=== PATIENT | male | born 1940 | race Caucasian/White ===

== ENCOUNTER → 2017-05-03 09:04 | Outpatient (CLI) | payer MEDICARE, OTHER, SELFPAY ==
[2017-05-03 11:45] LABS: Ferritin 2951 ng/mL (8-388)
[2017-05-04 08:21] LABS: Iron 242 ug/dL (38-169); UIBC 270 ug/dL (111-343)
[2017-05-04 12:16] LABS: Iron Saturation 47 % (15-55)
== END ==
PROVIDERS: PCP Internal Medicine Adolescent Medicine; Visit Provider Internal Medicine
DX: D64.9 Anemia, unspecified (principal); C83.07 Small cell B-cell lymphoma, spleen
CPT/HCPCS: 82728; 83550

== ENCOUNTER → 2017-05-17 08:42 | Outpatient (CLI) | payer MEDICARE, OTHER, SELFPAY ==
[2017-05-17 10:05] LABS: Alanine Aminotransferase 49 U/L (12-78); Albumin Level 3.5 gm/dL (3.4-5.0); Alkaline Phosphatase 137 U/L (46-116); Anion Gap 15.5 mEq/L (5-15); Aspartate Amino Transferase 38 U/L (15-37); Bilirubin,Total 0.7 mg/dL (0.2-1.0); Blood Urea Nitrogen 26 mg/dL (7-18); Calcium 8.6 mg/dL (8.5-10.1); Carbon Dioxide 22 mmol/L (21.0-32.0); Chloride 105 mmol/L (98-107); Creatinine,Serum 0.87 mg/dL (0.70-1.30); Estimated Glomerular Filt Rate 85 ml/min (>60); GFR (African American) 103 ML/MIN (>60); Globulin 3.5 gm/dl (1.3-3.2); Glucose 133 mg/dL (74-106); Potassium 3.5 mmoL/L (3.5-5.1); Sodium 139 mmol/L (136-145)
== END ==
PROVIDERS: PCP Internal Medicine Adolescent Medicine; Visit Provider Internal Medicine
DX: D64.9 Anemia, unspecified (principal); C83.07 Small cell B-cell lymphoma, spleen
CPT/HCPCS: 36415; 80053

== ENCOUNTER → 2017-05-18 14:06 | Outpatient (CLI) | payer MEDICARE, OTHER, SELFPAY ==
[2017-05-18 14:21] LABS: Basophils % 0.3 % (0.1-2.0); Eosinophils # 0.1 K/mm3 (0.0-0.4); Eosinophils % 1.6 % (0.1-12.0); Lymphocytes # 0.6 K/mm3 (0.7-4.5); Mean Corpuscular HGB Conc 32.4 g/dL (31.8-35.4); Mean Corpuscular Hemoglobin 37.9 pg (27.0-31.2); Mean Platelet Volume 10.2 fl (7.4-10.4); Monocytes # 0.4 K/mm3 (0.1-1.0); Monocytes % 12.6 % (1.7-9.3); Neutrophils % 66.5 % (37.0-80.0); Platelet Count 81 K/mm3 (142-424); Red Cell Distribution Width 23.9 % (11.5-17.5)
[2017-05-18 14:31] LABS: Hematocrit 19.9 % (42.0-52.0); Hemoglobin 6.4 g/dL (14.1-18.0)
== END ==
PROVIDERS: PCP Internal Medicine Adolescent Medicine; Visit Provider Internal Medicine
DX: D64.9 Anemia, unspecified (principal); C83.07 Small cell B-cell lymphoma, spleen
CPT/HCPCS: 36415; 85025

== ENCOUNTER 2017-05-19 08:00 | Outpatient (CLI) | payer MEDICARE, OTHER, SELFPAY ==
[2017-05-19] VITALS (18 sets, daily range): BP systolic 74–110; BP diastolic 31–66; PULSE 63–80; RESP 16–18; TEMP 36.2–36.7; BMI 12.9
--- NOTE | 2017-05-19 11:03 | PC.NURSE ---
BLOOD DRAWN WITH IV STICK TO GET TYPE AND CROSSMATCH FOR 2 UNITS PRBC'S AT THIS TIME. TERRI FROM LAB PRESENT.
--- NOTE | 2017-05-19 11:18 | PC.NURSE ---
1048 - TRANSFUSION RATE INCREASED FROM 100 ML/HR TO 150 ML/HR AT THIS TIME
--- NOTE | 2017-05-19 11:44 | PC.NURSE ---
1118 - RATE INCREASED TO 200 ML/HR AT THIS TIME
--- NOTE | 2017-05-19 13:25 | PC.NURSE ---
1308 - INCREASED RATE FROM 100 ML/HR TO 150 ML/HR AT THIS TIME
--- NOTE | 2017-05-19 15:12 | PC.NURSE ---
1338 - INCREASED RATE TO 200 ML/HR AT THIS TIME
[2017-05-19 15:48] LABS: Hematocrit 29.1 % (42.0-52.0); Hemoglobin 9.7 g/dL (14.1-18.0)
== END 2017-05-19 15:40 | disposition home or self-care (01) ==
LOC: INF 08:50
PROVIDERS: Family Provider Internal Medicine Adolescent Medicine; PCP Internal Medicine Adolescent Medicine; Visit Provider Internal Medicine
DX: C85.90 Non-Hodgkin lymphoma, unspecified, unspecified site (principal)
CPT/HCPCS: 36430; 85014; 85018; 86850; P9016

== ENCOUNTER → 2017-06-14 08:41 | Outpatient (CLI) | payer MEDICARE, OTHER, SELFPAY ==
[2017-06-14 09:14] LABS: Basophils % 0.4 % (0.1-2.0); Eosinophils # 0.1 K/mm3 (0.0-0.4); Eosinophils % 1.1 % (0.1-12.0); Hematocrit 24.1 % (42.0-52.0); Lymphocytes # 0.5 K/mm3 (0.7-4.5); Lymphocytes % 10.6 K/mm3 (10-50); Mean Corpuscular HGB Conc 32.2 g/dL (31.8-35.4); Mean Corpuscular Hemoglobin 34.8 pg (27.0-31.2); Mean Corpuscular Volume 108.1 fl (80-94); Mean Platelet Volume 10.4 fl (7.4-10.4); Monocytes # 0.4 K/mm3 (0.1-1.0); Monocytes % 9.7 % (1.7-9.3); Neutrophils # 3.6 K/mm3 (1.8-7.8); Neutrophils % 78.1 % (37.0-80.0); Platelet Count 77 K/mm3 (142-424); Red Blood Count 2.23 M/mm3 (4.60-6.20); Red Cell Distribution Width 24.1 % (11.5-17.5); White Blood Count 4.6 K/mm3 (4.8-10.8)
[2017-06-14 09:30] LABS: Hemoglobin 7.8 g/dL (14.1-18.0)
[2017-06-14 09:34] LABS: Alanine Aminotransferase 28 U/L (12-78); Albumin Level 3.2 gm/dL (3.4-5.0); Albumin/Globulin Ratio 0.8 (1.1-1.8); Alkaline Phosphatase 162 U/L (46-116); Anion Gap 14.2 mEq/L (5-15); Aspartate Amino Transferase 21 U/L (15-37); Bilirubin,Total 0.8 mg/dL (0.2-1.0); Blood Urea Nitrogen 20 mg/dL (7-18); Calcium 8.7 mg/dL (8.5-10.1); Carbon Dioxide 24 mmol/L (21.0-32.0); Chloride 103 mmol/L (98-107); Creatinine,Serum 0.82 mg/dL (0.70-1.30); Estimated Glomerular Filt Rate 91 ml/min (>60); GFR (African American) 110 ML/MIN (>60); Globulin 4.1 gm/dl (1.3-3.2); Glucose 122 mg/dL (74-106); Potassium 3.2 mmoL/L (3.5-5.1); Sodium 138 mmol/L (136-145); Total Protein,Serum 7.3 gm/dL (6.4-8.2)
--- NOTE | 2017-06-15 14:53 | SW/DCPLANNER ---
Follow up call on 05/04/17 TIMOTHY: Spoke with patients who has stated that patient was doing okay today. Engaged in conversation with about being scared of dying but she has stated that she has had several conversations with patient. Patient and stated that they have everything they need at this time and no further resources are necessary. Date of visit: 05/04/17
== END ==
PROVIDERS: Visit Provider Internal Medicine
DX: C83.07 Small cell B-cell lymphoma, spleen (principal); E83.10 Disorder of iron metabolism, unspecified
CPT/HCPCS: 36415; 80053; 85025

== ENCOUNTER 2017-06-20 08:14 | Outpatient (CLI) | payer MEDICARE, OTHER, SELFPAY ==
[2017-06-20] VITALS (21 sets, daily range): BP systolic 80–107; BP diastolic 38–61; PULSE 53–77; RESP 18–20; TEMP 36.2–36.4; O2SAT 96–97; BMI 12.7
[2017-06-20 14:59] LABS: Hematocrit 28.4 % (42.0-52.0); Hemoglobin 9.2 g/dL (14.1-18.0)
== END 2017-06-20 14:30 | disposition home or self-care (01) ==
LOC: INF 08:14
PROVIDERS: Family Provider Internal Medicine Adolescent Medicine; PCP Internal Medicine Adolescent Medicine; Visit Provider Internal Medicine
DX: D64.9 Anemia, unspecified (principal)
CPT/HCPCS: 36430; 85014; 85018; 86850; P9016

== ENCOUNTER → 2017-07-12 08:52 | Outpatient (CLI) | payer MEDICARE, OTHER, SELFPAY ==
[2017-07-12 09:09] LABS: Basophils % 0.4 % (0.1-2.0); Eosinophils % 1.2 % (0.1-12.0); Hematocrit 26.4 % (42.0-52.0); Hemoglobin 8.7 g/dL (14.1-18.0); Lymphocytes # 0.4 K/mm3 (0.7-4.5); Lymphocytes % 11.8 K/mm3 (10-50); Mean Corpuscular HGB Conc 33.1 g/dL (31.8-35.4); Mean Corpuscular Hemoglobin 35.9 pg (27.0-31.2); Mean Corpuscular Volume 108.3 fl (80-94); Mean Platelet Volume 10.4 fl (7.4-10.4); Monocytes # 0.4 K/mm3 (0.1-1.0); Monocytes % 11.4 % (1.7-9.3); Neutrophils # 2.5 K/mm3 (1.8-7.8); Neutrophils % 75.3 % (37.0-80.0); Platelet Count 70 K/mm3 (142-424); Red Blood Count 2.44 M/mm3 (4.60-6.20); Red Cell Distribution Width 22.7 % (11.5-17.5); White Blood Count 3.3 K/mm3 (4.8-10.8)
[2017-07-12 11:21] LABS: Alanine Aminotransferase 44 U/L (12-78); Albumin Level 3.4 gm/dL (3.4-5.0); Alkaline Phosphatase 136 U/L (46-116); Aspartate Amino Transferase 35 U/L (15-37); Bilirubin,Total 0.9 mg/dL (0.2-1.0); Blood Urea Nitrogen 18 mg/dL (7-18); Calcium 8.6 mg/dL (8.5-10.1); Carbon Dioxide 24 mmol/L (21.0-32.0); Chloride 104 mmol/L (98-107); Creatinine,Serum 0.72 mg/dL (0.70-1.30); Estimated Glomerular Filt Rate 106 ml/min (>60); GFR (African American) 128 ML/MIN (>60); Globulin 3.4 gm/dl (1.3-3.2); Glucose 128 mg/dL (74-106); Sodium 139 mmol/L (136-145); Total Protein,Serum 6.8 gm/dL (6.4-8.2)
== END ==
PROVIDERS: Visit Provider Internal Medicine
DX: C83.07 Small cell B-cell lymphoma, spleen (principal); E83.118 Other hemochromatosis
CPT/HCPCS: 36415; 80053; 85025

== ENCOUNTER → 2017-08-09 09:22 | Outpatient (CLI) | payer MEDICARE, OTHER, SELFPAY ==
[2017-08-09 12:31] LABS: Alanine Aminotransferase 39 U/L (12-78); Albumin Level 2.9 gm/dL (3.4-5.0); Albumin/Globulin Ratio 0.9 (1.1-1.8); Alkaline Phosphatase 119 U/L (46-116); Aspartate Amino Transferase 32 U/L (15-37); Bilirubin,Total 0.9 mg/dL (0.2-1.0); Blood Urea Nitrogen 15 mg/dL (7-18); Calcium 8.6 mg/dL (8.5-10.1); Carbon Dioxide 24 mmol/L (21.0-32.0); Chloride 104 mmol/L (98-107); Creatinine,Serum 0.67 mg/dL (0.70-1.30); Estimated Glomerular Filt Rate 115 ml/min (>60); GFR (African American) 139 ML/MIN (>60); Globulin 3.2 gm/dl (1.3-3.2); Glucose 115 mg/dL (74-106); Sodium 139 mmol/L (136-145); Total Protein,Serum 6.1 gm/dL (6.4-8.2)
[2017-08-09 14:02] LABS: Ferritin 2682 ng/mL (8-388)
[2017-08-09 14:46] LABS: Basophils % 0.2 % (0.1-2.0); Eosinophils % 1.9 % (0.1-12.0); Lymphocytes # 0.3 K/mm3 (0.7-4.5); Lymphocytes % 14.6 K/mm3 (10-50); Mean Corpuscular HGB Conc 31.9 g/dL (31.8-35.4); Mean Corpuscular Hemoglobin 38.3 pg (27.0-31.2); Mean Corpuscular Volume 119.9 fl (80-94); Mean Platelet Volume 11.7 fl (7.4-10.4); Monocytes # 0.2 K/mm3 (0.1-1.0); Monocytes % 11.8 % (1.7-9.3); Neutrophils # 1.4 K/mm3 (1.8-7.8); Neutrophils % 71.5 % (37.0-80.0); Platelet Count 61 K/mm3 (142-424); Red Blood Count 1.35 M/mm3 (4.60-6.20); Red Cell Distribution Width 23.2 % (11.5-17.5)
[2017-08-09 14:50] LABS: Hematocrit 16.2 % (42.0-52.0); Hemoglobin 5.2 g/dL (14.1-18.0)
[2017-08-10 08:28] LABS: Iron 147 ug/dL (38-169); UIBC 19 ug/dL (111-343)
[2017-08-11 12:54] LABS: Iron Saturation 89 % (15-55)
== END ==
PROVIDERS: Visit Provider Internal Medicine
DX: C83.07 Small cell B-cell lymphoma, spleen (principal); D64.9 Anemia, unspecified; E83.119 Hemochromatosis, unspecified
CPT/HCPCS: 36415; 80053; 82728; 83550; 85025; 86850

== ENCOUNTER 2017-08-10 08:17 | Outpatient (CLI) | payer MEDICARE, OTHER, SELFPAY ==
[2017-08-10] VITALS (26 sets, daily range): BP systolic 71–105; BP diastolic 34–53; PULSE 66–85; RESP 16–18; TEMP 36.1–36.7; O2SAT 100; BMI 12.7
--- NOTE | 2017-08-10 08:47 | PC.NURSE ---
0845 - INFUSION RATE AT 100 ML/HR AT THIS TIME.
--- NOTE | 2017-08-10 09:30 | PC.NURSE ---
0915 - INCREASED RATE TO 150 ML/HR AT THIS TIME.
--- NOTE | 2017-08-10 10:05 | PC.NURSE ---
0945 - INCREASED RATE TO 200 ML/HR AT THIS TIME.
--- NOTE | 2017-08-10 10:49 | PC.NURSE ---
1015 - INFUSION RATE INCREASED TO 250 ML/HR AT THIS TIME.
--- NOTE | 2017-08-10 11:18 | PC.NURSE ---
1115 - INFUSION RATE AT 100 ML/HR.
--- NOTE | 2017-08-10 12:30 | PC.NURSE ---
1145 - INCREASED RATE TO 150 ML/HR AT THIS TIME.
--- NOTE | 2017-08-10 12:33 | PC.NURSE ---
1215 - INCREASED RATE TO 200 ML/HR AT THIS TIME.
--- NOTE | 2017-08-10 13:04 | PC.NURSE ---
1245 - RATE WAS INCREASED TO 250 ML/HR AT THIS TIME.
--- NOTE | 2017-08-10 13:26 | PC.NURSE ---
1322 - INFUSION RATE AT 100 ML/HR.
--- NOTE | 2017-08-10 13:58 | PC.NURSE ---
1352 - INCREASED RATE TO 150 ML/HR AT THIS TIME.
--- NOTE | 2017-08-10 15:16 | PC.NURSE ---
1422 - INCREASED RATE TO 200 ML/HR AT THIS TIME.
--- NOTE | 2017-08-10 15:17 | PC.NURSE ---
1452 - RATE INCREASED TO 250 ML/HR AT THIS TIME.
[2017-08-10 16:29] LABS: Hemoglobin 10.9 g/dL (14.1-18.0)
--- NOTE | 2017-08-10 16:29 | PC.NURSE ---
1610 - BLOOD DRAWN FROM IV AT THIS TIME TO CHECK 1 HR POST H/H.
== END 2017-08-10 16:20 | disposition home or self-care (01) ==
LOC: INF 08:17
PROVIDERS: Family Provider Internal Medicine Adolescent Medicine; PCP Internal Medicine Adolescent Medicine; Visit Provider Internal Medicine
DX: D64.9 Anemia, unspecified (principal)
CPT/HCPCS: 36430; 85014; 85018; P9016

== ENCOUNTER → 2017-09-13 09:10 | Outpatient (CLI) | payer MEDICARE, OTHER, SELFPAY ==
[2017-09-13 10:00] LABS: Basophils % 0.3 % (0.1-2.0); Eosinophils # 0.1 K/mm3 (0.0-0.4); Eosinophils % 1.6 % (0.1-12.0); Lymphocytes # 0.3 K/mm3 (0.7-4.5); Lymphocytes % 9.6 K/mm3 (10-50); Mean Corpuscular HGB Conc 30.9 g/dL (31.8-35.4); Mean Corpuscular Hemoglobin 35.2 pg (27.0-31.2); Mean Corpuscular Volume 114.1 fl (80-94); Mean Platelet Volume 11.2 fl (7.4-10.4); Monocytes # 0.4 K/mm3 (0.1-1.0); Monocytes % 10.2 % (1.7-9.3); Neutrophils # 2.8 K/mm3 (1.8-7.8); Neutrophils % 78.4 % (37.0-80.0); Red Blood Count 1.44 M/mm3 (4.60-6.20); Red Cell Distribution Width 24.1 % (11.5-17.5); White Blood Count 3.5 K/mm3 (4.8-10.8)
[2017-09-13 10:37] LABS: Hematocrit 16.4 % (42.0-52.0); Platelet Count 44 K/mm3 (142-424)
[2017-09-13 11:34] LABS: Hemoglobin 5.1 g/dL (14.1-18.0)
== END ==
PROVIDERS: Visit Provider Internal Medicine
DX: C83.07 Small cell B-cell lymphoma, spleen (principal)
CPT/HCPCS: 36415; 85025; 86850

== ENCOUNTER 2017-09-14 08:00 | Outpatient (CLI) | payer MEDICARE, OTHER, SELFPAY ==
[2017-09-14] VITALS (27 sets, daily range): BP systolic 84–106; BP diastolic 34–57; PULSE 66–96; RESP 16–18; TEMP 35.8–36.3; O2SAT 98; BMI 12.7
--- NOTE | 2017-09-14 08:51 | PC.NURSE ---
0850 - BLOOD TRANSFUSION STARTED AT THIS TIME AT 100 ML/HR.
--- NOTE | 2017-09-14 10:15 | PC.NURSE ---
RATE INCREASED TO 150 ML/HR AT THIS TIME.
--- NOTE | 2017-09-14 10:17 | PC.NURSE ---
RATE INCREASED TO 200 ML/HR AT THIS TIME.
--- NOTE | 2017-09-14 10:51 | PC.NURSE ---
INFUSION RATE WAS INCREASED TO 250 ML/HR AT 1020.
--- NOTE | 2017-09-14 11:08 | PC.NURSE ---
1105 - BLOOD STARTED TRANSFUSING AT 100 ML/HR AT THIS TIME.
--- NOTE | 2017-09-14 11:38 | PC.NURSE ---
INCREASED RATE TO 150 ML/HR AT THIS TIME.
--- NOTE | 2017-09-14 12:33 | PC.NURSE ---
INCREASED RATE TO 200 ML/HR AT THIS TIME.
--- NOTE | 2017-09-14 13:36 | PC.NURSE ---
BLOOD STARTED TRANSFUSING AT THIS TIME AT 100 ML/HR.
--- NOTE | 2017-09-14 14:07 | PC.NURSE ---
INCREASED RATE TO 150 ML/HR AT THIS TIME.
--- NOTE | 2017-09-14 14:42 | PC.NURSE ---
INCREASED RATE TO 200 ML/HR AT THIS TIME.
--- NOTE | 2017-09-14 16:00 | PC.NURSE ---
RATE INCREASED TO 250 ML/HR AT 1505.
[2017-09-14 16:32] LABS: Hematocrit 31.8 % (42.0-52.0); Hemoglobin 10.5 g/dL (14.1-18.0)
--- NOTE | 2017-09-14 16:34 | PC.NURSE ---
BLOOD DRAWN FROM IV AT THIS TIME FOR 1 HR POST H/H THEN IV REMOVED.
== END 2017-09-14 16:30 | disposition home or self-care (01) ==
LOC: INF 08:11
PROVIDERS: Family Provider Internal Medicine Adolescent Medicine; PCP Internal Medicine Adolescent Medicine; Visit Provider Internal Medicine
DX: D64.9 Anemia, unspecified (principal)
CPT/HCPCS: 36430; 85014; 85018; P9016

== ENCOUNTER → 2017-09-27 09:26 | Outpatient (CLI) | payer MEDICARE, OTHER, SELFPAY ==
[2017-09-27 10:28] LABS: Eosinophils % 1.7 % (0.1-12.0); Hematocrit 25.5 % (42.0-52.0); Hemoglobin 8.1 g/dL (14.1-18.0); Lymphocytes # 0.3 K/mm3 (0.7-4.5); Lymphocytes % 13.7 K/mm3 (10-50); Mean Corpuscular HGB Conc 31.6 g/dL (31.8-35.4); Mean Corpuscular Hemoglobin 31.9 pg (27.0-31.2); Mean Corpuscular Volume 100.8 fl (80-94); Mean Platelet Volume 11.3 fl (7.4-10.4); Monocytes # 0.3 K/mm3 (0.1-1.0); Monocytes % 12.6 % (1.7-9.3); Neutrophils # 1.5 K/mm3 (1.8-7.8); Red Blood Count 2.53 M/mm3 (4.60-6.20); Red Cell Distribution Width 23.8 % (11.5-17.5); White Blood Count 2.1 K/mm3 (4.8-10.8)
[2017-09-27 10:30] LABS: Platelet Count 49 K/mm3 (142-424)
== END ==
PROVIDERS: Visit Provider Internal Medicine
DX: C83.07 Small cell B-cell lymphoma, spleen (principal)
CPT/HCPCS: 36415; 85025

== ENCOUNTER → 2017-10-04 14:45 | Outpatient (CLI) | payer MEDICARE, OTHER, SELFPAY ==
[2017-10-05 08:39] LABS: Hematocrit 20.4 % (42.0-52.0); Hemoglobin 6.3 g/dL (14.1-18.0)
== END ==
PROVIDERS: Visit Provider Internal Medicine
DX: D64.9 Anemia, unspecified (principal)
CPT/HCPCS: 36415; 85014; 85018; 86850

== ENCOUNTER 2017-10-05 08:21 | Outpatient (CLI) | payer MEDICARE, OTHER, SELFPAY ==
[2017-10-05] VITALS (18 sets, daily range): BP systolic 62–109; BP diastolic 35–53; PULSE 61–107; RESP 16–18; TEMP 35.9–36.3; BMI 12.7
--- NOTE | 2017-10-05 09:00 | PC.NURSE ---
0857 - STARTED BLOOD TRANSFUSION AT 100 ML/HR AT THIS TIE.
--- NOTE | 2017-10-05 11:00 | PC.NURSE ---
0927 - INCREASED RATE TO 150 ML/HR AT THIS TIME.
--- NOTE | 2017-10-05 11:03 | PC.NURSE ---
0957 - INCREASED RATE TO 200 ML/HR AT THIS TIME.
--- NOTE | 2017-10-05 11:04 | PC.NURSE ---
1027 - INCREASED RATE TO 250 ML/HR AT THIS TIME.
--- NOTE | 2017-10-05 11:18 | PC.NURSE ---
1115 - BLOOD TRANSFUSION STARTED AT 100 ML/HR AT THIS TIME.
--- NOTE | 2017-10-05 12:39 | PC.NURSE ---
1130 - INCREASED RATE TO 150 ML/HR AT THIS TIME.
--- NOTE | 2017-10-05 12:43 | PC.NURSE ---
1215 - INCREASED RATE TO 200 ML/HR AT THIS TIME.
--- NOTE | 2017-10-05 14:03 | PC.NURSE ---
1245 - RATE INCREASED TO 250 ML/HR AT THIS TIME.
[2017-10-05 14:13] LABS: Hematocrit 29.7 % (42.0-52.0)
[2017-10-05 14:28] LABS: Hemoglobin 9.5 g/dL (14.1-18.0)
== END 2017-10-05 14:10 | disposition home or self-care (01) ==
LOC: INF 08:21
PROVIDERS: Family Provider Internal Medicine Adolescent Medicine; PCP Internal Medicine Adolescent Medicine; Visit Provider Internal Medicine
DX: D64.9 Anemia, unspecified (principal)
CPT/HCPCS: 36430; 85014; 85018; P9016

== ENCOUNTER → 2017-10-16 10:01 | Outpatient (CLI) | payer MEDICARE, OTHER, SELFPAY ==
[2017-10-16 10:52] LABS: Basophils % 0.5 % (0.1-2.0); Eosinophils # 0.1 K/mm3 (0.0-0.4); Eosinophils % 1.6 % (0.1-12.0); Hematocrit 24.9 % (42.0-52.0); Lymphocytes # 0.3 K/mm3 (0.7-4.5); Lymphocytes % 10.7 K/mm3 (10-50); Mean Corpuscular HGB Conc 31.6 g/dL (31.8-35.4); Mean Corpuscular Hemoglobin 32.3 pg (27.0-31.2); Mean Corpuscular Volume 102.2 fl (80-94); Mean Platelet Volume 11.6 fl (7.4-10.4); Monocytes # 0.3 K/mm3 (0.1-1.0); Monocytes % 10.6 % (1.7-9.3); Neutrophils # 2.3 K/mm3 (1.8-7.8); Neutrophils % 76.5 % (37.0-80.0); Red Blood Count 2.43 M/mm3 (4.60-6.20); Red Cell Distribution Width 24.3 % (11.5-17.5)
[2017-10-16 10:59] LABS: Hemoglobin 7.9 g/dL (14.1-18.0); Platelet Count 31 K/mm3 (142-424)
[2017-10-16 12:22] LABS: Alanine Aminotransferase 35 U/L (12-78); Albumin Level 2.6 gm/dL (3.4-5.0); Albumin/Globulin Ratio 0.9 (1.1-1.8); Alkaline Phosphatase 101 U/L (46-116); Anion Gap 11.4 mEq/L (5-15); Aspartate Amino Transferase 27 U/L (15-37); Bilirubin,Total 1.2 mg/dL (0.2-1.0); Blood Urea Nitrogen 24 mg/dL (7-18); Calcium 7.9 mg/dL (8.5-10.1); Carbon Dioxide 27 mmol/L (21.0-32.0); Chloride 104 mmol/L (98-107); Creatinine,Serum 0.79 mg/dL (0.70-1.30); Estimated Glomerular Filt Rate 95 ml/min (>60); GFR (African American) 115 ML/MIN (>60); Glucose 201 mg/dL (74-106); Potassium 3.4 mmoL/L (3.5-5.1); Sodium 139 mmol/L (136-145); Total Protein,Serum 5.6 gm/dL (6.4-8.2)
== END ==
PROVIDERS: Visit Provider Internal Medicine
DX: C83.07 Small cell B-cell lymphoma, spleen (principal); D64.9 Anemia, unspecified
CPT/HCPCS: 36415; 80053; 85025

== ENCOUNTER → 2017-10-23 14:23 | Outpatient (CLI) | payer MEDICARE, OTHER, SELFPAY | PROVIDERS: Visit Provider Internal Medicine | DX: C83.07 Small cell B-cell lymphoma, spleen (principal); K62.5 Hemorrhage of anus and rectum; Z92.3 Personal history of irradiation | CPT/HCPCS: 36415; 86850 ==

== ENCOUNTER 2017-10-24 08:16 | Outpatient (CLI) | payer MEDICARE, OTHER, SELFPAY ==
[2017-10-24] VITALS (19 sets, daily range): BP systolic 69–112; BP diastolic 30–65; PULSE 62–95; RESP 20; TEMP 36.1–36.3; O2SAT 95–96; BMI 12.3
[2017-10-24 14:46] LABS: Hematocrit 28.5 % (42.0-52.0); Hemoglobin 9.1 g/dL (14.1-18.0)
== END 2017-10-24 14:54 | disposition home or self-care (01) ==
LOC: INF 08:16
PROVIDERS: Family Provider Internal Medicine Adolescent Medicine; PCP Internal Medicine Adolescent Medicine; Visit Provider Internal Medicine
DX: C83.07 Small cell B-cell lymphoma, spleen (principal); K62.5 Hemorrhage of anus and rectum; Z92.3 Personal history of irradiation
CPT/HCPCS: 36430; 85014; 85018; P9016

== ENCOUNTER → 2017-10-31 08:44 | Outpatient (CLI) | payer MEDICARE, OTHER, SELFPAY ==
--- NOTE | 2017-10-31 | XR_ITS ---
XR ribs BI min 4V w CXR1V COMPARISON: CT scan the chest 12/22/2016 HISTORY: Patient with known lymphoma possibly abnormal bone scan TECHNIQUE: PA chest and bilateral RIBS FINDINGS: Emphysematous changes are noted with hyperexpansion of lung roberts and depression of the hemidiaphragms. There is blunting of the right costo phrenic angle. There is generalized osteopenia the thoracic spine. This is stable mild old compression of T11 and mild compression of L1 as well. All the ribs appear to be intact bilaterally with no definite lytic or blastic lesions seen. There are no definite lytic or blastic lesions seen within the thoracic or lumbar spine. 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
--- NOTE | 2017-10-31 08:47 | NM_ITS ---
NM bone scan whole body COMPARISON: None HISTORY: Known lymphoma, rectal bleeding TECHNIQUE: 25.6 mCi technique 9M MDP was injected. Focal body anterior posterior scans were obtained along with cone-down lateral views of the head and neck FINDINGS: The bony calvarium and cervical spine appear normal. There is mildly diffuse increased activity within the cervical spine probably reflecting multilevel degenerative change. The shoulders and arms appear normal. There is a faint area of increased activity in the lower thoracic spine which appears to involve the T10 vertebral body. Patient has known mild compression fractures of T11 and L1 and these vertebral bodies show normal activity. The remainder of lumbar spine shows mild diffuse increased activity consistent with degenerative change. There is bilateral symmetrical activity in the [place] of the catheter ribs anteriorly probably reflecting arthritic change. The bony pelvis hips and femurs and lower legs appear normal. There are slightly increased activity in both knees which is bilateral symmetrical likely reflects mild degenerative change. IMPRESSION: Curious area of increased activity corresponding to the T10 vertebral body which shows no definite compression on the rib films. In view of the patient's history of osseous CT scan thoracic spine should be obtained to rule out the possibility of an early metastatic lesion involving T10.
== END ==
PROVIDERS: Family Provider Internal Medicine Adolescent Medicine; PCP Internal Medicine Adolescent Medicine; Visit Provider Internal Medicine
DX: C83.07 Small cell B-cell lymphoma, spleen (principal); K62.5 Hemorrhage of anus and rectum; Z92.3 Personal history of irradiation
CPT/HCPCS: 71111; 78306; A9503

== ENCOUNTER → 2017-11-08 12:52 | Outpatient (CLI) | payer MEDICARE, OTHER, SELFPAY ==
[2017-11-08 13:27] LABS: Basophils % 0.3 % (0.1-2.0); Eosinophils # 0.1 K/mm3 (0.0-0.4); Eosinophils % 0.5 % (0.1-12.0); Hematocrit 28.9 % (42.0-52.0); Hemoglobin 9.2 g/dL (14.1-18.0); Lymphocytes # 0.3 K/mm3 (0.7-4.5); Lymphocytes % 2.7 K/mm3 (10-50); Mean Corpuscular HGB Conc 31.8 g/dL (31.8-35.4); Mean Corpuscular Hemoglobin 34.4 pg (27.0-31.2); Mean Corpuscular Volume 108.2 fl (80-94); Mean Platelet Volume 11.4 fl (7.4-10.4); Monocytes # 0.6 K/mm3 (0.1-1.0); Neutrophils # 9.5 K/mm3 (1.8-7.8); Neutrophils % 90.5 % (37.0-80.0); Red Blood Count 2.67 M/mm3 (4.60-6.20); White Blood Count 10.5 K/mm3 (4.8-10.8)
[2017-11-08 13:48] LABS: Alanine Aminotransferase 59 U/L (12-78); Albumin Level 2.5 gm/dL (3.4-5.0); Alkaline Phosphatase 143 U/L (46-116); Anion Gap 13.2 mEq/L (5-15); Aspartate Amino Transferase 18 U/L (15-37); Bilirubin,Total 1.2 mg/dL (0.2-1.0); Blood Urea Nitrogen 24 mg/dL (7-18); Calcium 7.9 mg/dL (8.5-10.1); Carbon Dioxide 27 mmol/L (21.0-32.0); Chloride 106 mmol/L (98-107); Creatinine,Serum 0.67 mg/dL (0.70-1.30); Estimated Glomerular Filt Rate 115 ml/min (>60); GFR (African American) 139 ML/MIN (>60); Globulin 2.5 gm/dl (1.3-3.2); Glucose 208 mg/dL (74-106); Potassium 3.2 mmoL/L (3.5-5.1); Sodium 143 mmol/L (136-145)
[2017-11-08 14:57] LABS: Red Cell Distribution Width 26.5 % (11.5-17.5)
[2017-11-08 14:59] LABS: Platelet Count 40 K/mm3 (142-424)
[2017-11-08 15:00] LABS: MANUAL DIFFERENTIAL MANUAL DIFFERENTIAL (MANUAL DIFF)
[2017-11-08 15:10] LABS: Lymphocytes % 6 % (10-50); Monocytes % 4 % (2-9); Neutrophils % 90 % (42-76); Total Cells Counted 100
[2017-11-08 15:29] LABS: Macrocytosis 2+
[2017-11-08 15:31] LABS: Platelet Estimate Marked Decrease
== END ==
PROVIDERS: Visit Provider Internal Medicine
DX: C83.07 Small cell B-cell lymphoma, spleen (principal); K62.5 Hemorrhage of anus and rectum; Z92.3 Personal history of irradiation
CPT/HCPCS: 36415; 80053; 85007; 85025

== ENCOUNTER → 2017-11-29 09:43 | Outpatient (CLI) | payer MEDICARE, OTHER, SELFPAY ==
[2017-11-29 10:06] LABS: Basophils % 0.5 % (0.1-2.0); Eosinophils # 0.1 K/mm3 (0.0-0.4); Eosinophils % 0.6 % (0.1-12.0); Lymphocytes # 0.8 K/mm3 (0.7-4.5); Lymphocytes % 8.2 K/mm3 (10-50); Mean Corpuscular HGB Conc 31.1 g/dL (31.8-35.4); Mean Corpuscular Hemoglobin 36.8 pg (27.0-31.2); Mean Corpuscular Volume 118.4 fl (80-94); Mean Platelet Volume 10.7 fl (7.4-10.4); Monocytes # 0.7 K/mm3 (0.1-1.0); Monocytes % 6.9 % (1.7-9.3); Neutrophils % 83.8 % (37.0-80.0); Platelet Count 64 K/mm3 (142-424); White Blood Count 9.6 K/mm3 (4.8-10.8)
[2017-11-29 10:18] LABS: Red Cell Distribution Width 25.4 % (11.5-17.5)
[2017-11-29 10:19] LABS: Red Blood Count 1.48 M/mm3 (4.60-6.20)
[2017-11-29 10:26] LABS: Hematocrit 17.4 % (42.0-52.0); Hemoglobin 5.5 g/dL (14.1-18.0)
[2017-11-29 10:41] LABS: Alanine Aminotransferase 63 U/L (12-78); Albumin Level 2.3 gm/dL (3.4-5.0); Albumin/Globulin Ratio 0.9 (1.1-1.8); Alkaline Phosphatase 153 U/L (46-116); Anion Gap 16.3 mEq/L (5-15); Aspartate Amino Transferase 31 U/L (15-37); Bilirubin,Total 1.5 mg/dL (0.2-1.0); Blood Urea Nitrogen 18 mg/dL (7-18); Calcium 7.5 mg/dL (8.5-10.1); Carbon Dioxide 24 mmol/L (21.0-32.0); Chloride 105 mmol/L (98-107); Estimated Glomerular Filt Rate 72 ml/min (>60); GFR (African American) 87 ML/MIN (>60); Globulin 2.6 gm/dl (1.3-3.2); Glucose 149 mg/dL (74-106); Potassium 3.3 mmoL/L (3.5-5.1); Sodium 142 mmol/L (136-145); Total Protein,Serum 4.9 gm/dL (6.4-8.2)
== END ==
PROVIDERS: Visit Provider Internal Medicine
DX: K62.7 Radiation proctitis (principal)
CPT/HCPCS: 36415; 80053; 85025

== ENCOUNTER 2017-11-30 08:07 | Outpatient (CLI) | payer MEDICARE, OTHER, SELFPAY ==
[2017-11-30] VITALS (20 sets, daily range): BP systolic 70–82; BP diastolic 31–45; PULSE 92–103; RESP 18–20; TEMP 36.2–37.1; O2SAT 96–98; BMI 13.4
[2017-11-30 15:23] LABS: Hemoglobin 7.5 g/dL (14.1-18.0)
[2017-11-30 15:24] LABS: Hematocrit 22.5 % (42.0-52.0)
== END 2017-11-30 15:15 | disposition home or self-care (01) ==
LOC: INF 08:11
PROVIDERS: Family Provider Internal Medicine Adolescent Medicine; PCP Internal Medicine Adolescent Medicine; Visit Provider Internal Medicine
DX: D64.9 Anemia, unspecified (principal)
CPT/HCPCS: 36430; 85014; 85018; 86850; P9016

== ENCOUNTER → 2017-12-04 12:39 | Outpatient (CLI) | payer MEDICARE, OTHER, SELFPAY ==
[2017-12-04 12:50] LABS: Basophils % 0.4 % (0.1-2.0); Eosinophils % 0.5 % (0.1-12.0); Hematocrit 25.4 % (42.0-52.0); Hemoglobin 8.4 g/dL (14.1-18.0); Lymphocytes # 0.2 K/mm3 (0.7-4.5); Lymphocytes % 2.2 K/mm3 (10-50); Mean Corpuscular Hemoglobin 34.3 pg (27.0-31.2); Mean Corpuscular Volume 104.2 fl (80-94); Mean Platelet Volume 12.3 fl (7.4-10.4); Monocytes # 0.4 K/mm3 (0.1-1.0); Neutrophils # 6.9 K/mm3 (1.8-7.8); Neutrophils % 91.9 % (37.0-80.0); Red Blood Count 2.44 M/mm3 (4.60-6.20); Red Cell Distribution Width 24.2 % (11.5-17.5); White Blood Count 7.5 K/mm3 (4.8-10.8)
[2017-12-04 13:58] LABS: Platelet Count 21 K/mm3 (142-424)
[2017-12-04 13:59] LABS: MANUAL DIFFERENTIAL MANUAL DIFFERENTIAL (MANUAL DIFF)
[2017-12-04 14:52] LABS: Lymphocytes % 6 % (10-50); Monocytes % 1 % (2-9); Neutrophils % 93 % (42-76); Total Cells Counted 100
[2017-12-04 14:53] LABS: Macrocytosis 1+; Platelet Estimate Marked Decrease
== END ==
PROVIDERS: Visit Provider Internal Medicine
DX: D64.9 Anemia, unspecified (principal)
CPT/HCPCS: 36415; 85007; 85025